=== PATIENT | male | born 1970 | race Caucasian/White ===

== ENCOUNTER 2022-01-03 11:12 | Observation (INO) ==
[2022-01-03] MEDS ORDERED: *HR* Propofol 200 MG/20 ML VIAL IVP ONE (11:32)
[2022-01-03] MEDS ORDERED: *HR* Midazolam HCl 2 MG/2 ML VIAL ONE (11:32)
[2022-01-03] MEDS ORDERED: *HR* FentaNYL (PF) 100 MCG/2 ML VIAL ONE (11:32)
[2022-01-03] MEDS ORDERED: Lidocaine -MPF 2% 2 ML VIAL ONE (11:33)
[2022-01-03] MEDS ORDERED: CeFAZolin Syr 2,000MG/20 ML 2,000 MG/20 ML SYRINGE IVPB ONE (11:36)
[2022-01-03] MEDS ORDERED: EPHEDrine 50 MG/ML VIAL ONE (11:42)
[2022-01-03] MEDS ORDERED: Ringers Solution, Lactated 1,000 ML IVC SCH (11:45)
[2022-01-03] MEDS ORDERED: Ondansetron 4 MG/2 ML VIAL IVP PRN ×2 (12:08→16:10)
[2022-01-03] MEDS ORDERED: *HR* OxyCODONE Immed Rel 5 MG TABLET PO PRN (12:08)
[2022-01-03] MEDS ORDERED: *HR* HYDROmorphone PF 0.5 MG/0.5 ML SYRINGE IVP PRN (12:08)
[2022-01-03] MEDS ORDERED: Furosemide 20 MG/2 ML VIAL IVP ONE ×2 (13:58→13:59)
[2022-01-03] MEDS ORDERED: *HR* Meperidine 25 MG/ML SYRINGE IVP ONE (14:15)
[2022-01-03] MEDS: *HR* OxyCODONE/APAP 5/325 TABLET PO PRN ×2 (16:31→23:08)
[2022-01-03] MEDS: *HR* Heparin 5,000 UNIT/ML VIAL SQ SCH (17:57)
[2022-01-04] MEDS: *HR* OxyCODONE/APAP 5/325 TABLET PO PRN (05:32)
[2022-01-04] MEDS: *HR* Heparin 5,000 UNIT/ML VIAL SQ SCH (05:32)
[2022-01-04] MEDS ORDERED: Ibuprofen 800 MG TABLET PO ONE (08:56)
[2022-01-04 11:21] VITALS: BP 114/71; PULSE 80; TEMP 98; O2SAT 92
== END 2022-01-04 14:04 | disposition home or self-care (01) ==
LOC: 3ANU 11:12 → SAMDAY 11:12 → 3ANU 16:02
PROVIDERS: ADMIT Surgery; ATTEND Surgery